=== PATIENT | male | born 2000 | race Caucasian/White ===

== ENCOUNTER 2023-06-23 13:55 | Emergency (ER) | payer OTHER ==
[~2023-06-23] VITALS: Ht 180.3 cm; Wt 83.5 kg
[2023-06-23 14:11] VITALS: BP 161/85; PULSE 121; RESP 24; TEMP 98.2; O2SAT 99
[2023-06-23] MEDS: methylPREDNISolone SS 125 MG/2 ML VIAL IM ONE (15:55)
[2023-06-23] MEDS: FAMOTIDINE 20 MG TAB PO ONE (15:55)
[2023-06-23] MEDS ORDERED: DIPH25TA53 PO (16:56)
[2023-06-23] MEDS ORDERED: EPIN1KIT31 IM (16:56)
[2023-06-23] MEDS ORDERED: PRED20TA5 PO (16:56)
[2023-06-23 17:07] VITALS: BP 122/72; PULSE 87; RESP 19; TEMP 98.2; O2SAT 99
== END 2023-06-23 17:08 | disposition home or self-care (01) ==
LOC: MED 13:55
DX: R22.0 Localized swelling, mass and lump, head (principal); T78.09XA Anaphylactic reaction due to other food products, initial encounter; Z79.899 Other long term (current) drug therapy
CPT/HCPCS: 96372; 99291; J2930